=== PATIENT | female | born 1945 | race Caucasian/White ===

== ENCOUNTER 2018-02-03 13:27 | Inpatient (IN) | payer MEDICARE, BC ==
[~2018-02-03] VITALS: Ht 157.5 cm; Wt 66.7 kg
[2018-02-03] MEDS ORDERED: IV NS 0.9% 500 ML IV ONE (13:42)
[2018-02-03] MEDS ORDERED: CT SWABBABLE VALVE TRANS SET 1 EA INFUS.SET MC ONE (13:42)
[2018-02-03] MEDS ORDERED: IOHEXOL-350 100 ML VIAL IV ONE (13:42)
[2018-02-03 13:45] LABS: BASOPHILS % (AUTO) 0.3 % (0.0-2.0); EOSINOPHILS % (AUTO) 0.9 % (0.0-6.0); HEMATOCRIT 40 % (33-45); LYMPHOCYTES % (AUTO) 11.4 % (20.0-44.0); MEAN CORPUSCULAR HGB CONC 35 g/dl (31.0-36.0); MEAN CORPUSCULAR VOLUME 91 fL (82-100); MONOCYTES # (AUTO) 0.2 /CMM (0.1-1.30); MONOCYTES % (AUTO) 2.4 % (2.0-12.0); NEUTROPHILS # (AUTO) 7.8 /CMM (1.8-8.9); PLATELET COUNT (AUTO) 347 /CMM (150-450); RDW COEFFICIENT OF VARIATION 12.3 (11.5-15.0); RED BLOOD CELL COUNT(AUTO) 4.42 MIL/uL (4.0-5.2); WHITE BLOOD COUNT (AUTO) 9.1 K/uL (4.3-11.0)
--- NOTE | 2018-02-03 13:45 | NUR ---
CALLED TELESTROKE HOTLINE, SPOKE WITH SOBIA. EXPETING A CALL BACK FROM DR FONTAINE.
--- NOTE | 2018-02-03 13:49 | NUR ---
DR FONTAINE CALLED
--- NOTE | 2018-02-03 13:49 | NUR ---
DR FONTAINE CALLED ON THE PHONE WITH DR SAUL.
[2018-02-03 13:56] LABS: CALCIUM, SERUM 8.9 mg/dL (8.5-10.1); CARBON DIOXIDE 29 mmol/L (21-32); CHLORIDE 104 mmol/L (98-107); CREATININE 0.7 mg/dL (0.6-1.3); GLUCOSE 108 mg/dL (74-106); POTASSIUM 3.9 mmol/L (3.5-5.1); SODIUM SERUM 140 mmol/L (136-145); UREA NITROGEN, BLOOD 12 mg/dL (7-18)
[2018-02-03] MEDS ORDERED: ONDANSETRON HCL/PF 4 MG/2 ML VIAL ONE (13:59)
[2018-02-03 14:00] LABS: INR 0.88 (0.85-1.15)
[2018-02-03] MEDS ORDERED: IV NS 0.9% 1,000 ML BAG IV ONE (14:00)
[2018-02-03] MEDS ORDERED: MECLIZINE HCL 25 MG TABLET ONE (14:00)
[2018-02-03] MEDS ORDERED: ONDANSETRON HCL/PF 4 MG/2 ML VIAL IVP ONE (14:00)
[2018-02-03] MEDS ORDERED: MECLIZINE HCL 12.5 MG TABLET PO ONE (14:00)
[2018-02-03 14:05] LABS: TROPONIN I < 0.017 ng/mL (0.00-0.056)
[2018-02-03] MEDS ORDERED: METO25TA3 PO (14:25)
[2018-02-03] MEDS ORDERED: LAMO200T PO (14:25)
[2018-02-03] MEDS ORDERED: AMPH10TA4 PO (14:25)
[2018-02-03] MEDS ORDERED: RIVA10TA PO (14:25)
[2018-02-03] MEDS ORDERED: DILT120C51 PO (14:25)
[2018-02-03] MEDS ORDERED: VENL75TA4 PO (14:25)
[2018-02-03 14:46] LABS: CHOLESTEROL 254 mg/dL (<200); HDL CHOLESTEROL 118 mg/dL (40-60); LDL 140 mg/dL (0-99); TRIGLYCERIDES 137 mg/dL (30-150)
[2018-02-03] MEDS ORDERED: ASPIRIN 81 MG TAB.CHEW ONE (14:58)
[2018-02-03 15:00] VITALS: BP 129/77
[2018-02-03] MEDS ORDERED: ASPIRIN 81 MG TAB.CHEW PO ONE (15:00)
[2018-02-03] MEDS ORDERED: LABETALOL HCL IV 100MG VIAL IV PRN (15:00)
[2018-02-03] MEDS ORDERED: hydrALAZINE HCL IV 20 MG VIAL IV PRN (15:00)
--- NOTE | 2018-02-03 15:08 | NUR ---
CALLED TELESTROKE HOTLINE, DR FONTAINE WAS PAGED.
--- NOTE | 2018-02-03 15:14 | NUR ---
CALLED DR GERMAIN OFFICE, WAS PAGED.
[2018-02-03 15:45] VITALS: BP 129/77
--- NOTE | 2018-02-03 15:45 | NUR ---
ASSEMBLER 1ST SHIFTDRIER TAKE OFF TENDER NOTE PATIENT IS ALERT AND ORIENTED x4. NO PAIN AT THIS TIME. NO SOB OR DISTRESS NOTED. ABLE TO COMMUNICATE NEEDS. IV ON LEFT AC INTACT AND PATENT NO REDNESS OR SWELLING NOTED. ALL BELONGINGS WITH PATIENT AT BEDSIDE AND ACCOUNTED FOR. PATIENT STATED SHE FELT LOSS OF BALANCE, FELL, UNSURE IF SHE HIT HER HEAD BUT HAD HEADACHE AND VOMITING IN ER. NIHSS SCALE ASSESSED, NURSING SWALLOW EVALUATION DONE. AWAITING MD ORDERS AT THIS TIME. WILL CONTINUE TO MONITOR THROUGHOUT SHIFT
[2018-02-03 15:52] LABS: APPEARANCE,URINE CLEAR (CLEAR); BILIRUBIN,URINE NEGATIVE (NEGATIVE); BLOOD, URINE NEGATIVE Ery/uL (NEGATIVE); COLOR,URINE YELLOW (YELLOW); KETONES,URINE NEGATIVE (NEGATIVE); LEUKOCYTE ESTERASE ,URINE NEGATIVE (NEGATIVE); NITRITE, URINE NEGATIVE (NEGATIVE); PH,URINE 7.5 (5.0-8.0); PROTEIN,URINE NEGATIVE (NEGATIVE); UGLUCOSE NEGATIVE (NEGATIVE); UROBILINOGEN,URINE 0.2 EU/dL (0.2)
[2018-02-03 16:01] LABS: ALBUMIN 4.1 g/dL (3.4-5.0); BILIRUBIN,DIRECT 0.1 mg/dL (0.0-0.2); BILIRUBIN,TOTAL 0.4 mg/dL (0.2-1.0); TOTAL PROTEIN, SERUM 7.7 g/dL (6.4-8.2)
--- NOTE | 2018-02-03 16:01 | NUR ---
DR. LUTHER TEXTED BACK, ON HOLD FOR NOW,HE WILL LET US KNOW.
--- NOTE | 2018-02-03 16:01 | NUR ---
TEXTED DR. LUTHER FOR MRI APPROVAL.
[2018-02-03 16:02] LABS: THYROID STIMULATING HORMONE 0.964 uIU/mL (0.358-3.74)
--- NOTE | 2018-02-03 16:06 | NUR ---
REPORT GIVEN TO ALEXANDRA MURILLO SENT TO [phone] IN-PATIENT ADMIT.
[2018-02-03] MEDS ORDERED: RIVAROXABAN 10 MG TABLET PO SCH ×2 (17:00)
[2018-02-03] MEDS: BLOOD SUGAR DIAGNOSTIC 1 EACH STRIP IN SCH ×2 (17:16→21:22)
[2018-02-03] MEDS ORDERED: BLOOD SUGAR DIAGNOSTIC 1 EACH STRIP IN SCH (18:00)
--- NOTE | 2018-02-03 18:42 | NUR ---
FUNERAL WORKERS CLOSING NOTE PATIENT RESTING COMFORTABLY AT THIS TIME. NO PAIN NOTED. NO SOB OR DISTRESS NOTED. CALL LIGHT WITHIN REACH AT ALL TIMES. SAFETY MEASURES IMPLEMENTED ABLE TO COMMUNICATE NEEDS. PT EVAL, OT EVAL, AND SPEECH EVAL PENDING TOMORROW. IV INTACT AND PATENT NO FLUIDS RUNNING AT THIS TIME. MRI BRAIN WITHOUT CONTRAST RESULTS PENDING AT THIS TIME. BLOOD SUGAR CHECKED ON SHIFT-90. CARDIAC DIET. WILL HAVE AM LABS. TELE MONITOR- SR/A-FIB AT 86. WILL ENDORSE TO MILITARY SCIENCE TEACHER NURSE FOR MAE
--- NOTE | 2018-02-03 19:10 | NUR ---
RN INITIAL NOTES: RECEIVED REPORT FROM COLTEN BAKER, PT IN BED, AWAKE, A/O X4, ON RA RESPIRATION EVEN KARTHIKEYAN UNLABORED, IV ACCESS PATENT AND FLUSHING WELL, ON HL. CARDIOLOGY MD AT BED SIDE FOR EVAL. PT ON TELE MONITORING AFIB HR 59. SAFETY PRECAUTIONS FOR FALL INITIATED CALL LIGHT IN REACH, WILL CONTINUE MONITORING PT
[2018-02-03 20:00] VITALS: BP 121/74
--- NOTE | 2018-02-03 20:30 | NUR ---
RN NOTES: STROKE EDUCATION PACKET PROVIDED TO THE PT, AND TEACHING INITIATED
--- NOTE | 2018-02-03 21:23 | NUR ---
BLOOD SUGAR 127: ACCU CHECK PERFORMED AND RESULT IS 127, NO INSULIN GIVEN PER SLIDING SCALE, WILL MONITOR PT FOR ANY S/S OF HYPOGLYCEMIA
[2018-02-03] MEDS ORDERED: SIMVASTATIN 40 MG TABLET PO SCH (22:00)
--- NOTE | 2018-02-03 22:57 | NUR ---
ECHO COMPLETE: TECH CAME TO DO ECHO COMPLETE, RESULTS ATTACHED TO PT'S CHART, EF 65% WITH COMMENTS: ATTENTION TO MITRAL VALVE LEAFLET (ANTERIOR)
[2018-02-04] VITALS: BP 101/52
--- NOTE | 2018-02-04 02:38 | NUR ---
RN NOTES: SEEN PT SLEEPING AT THIS TIME, PER LATHER APPRENTICE PT BEEN ON AFIB CONTROLLED HR 58, LOWEST 42
[2018-02-04 04:00] VITALS: BP 103/59
[2018-02-04] MEDS: BLOOD SUGAR DIAGNOSTIC 1 EACH STRIP IN SCH ×2 (06:26→12:16)
--- NOTE | 2018-02-04 06:26 | NUR ---
ACCU CHECK: BLOOD SUGAR CHECKED AND RESULT IS 104, NO INSULIN GIVEN PER SLIDING SCALE, BS IS WNL.
--- NOTE | 2018-02-04 06:42 | NUR ---
RN CLOSING NOTES: PT IN BED, AWAKE, A/O X3, ON RA, DENIES ANY CHEST PAIN OR DISCOMFORT AT THIS TIME. IV ACCESS REMAINS PATENT AND FLUSHING WELL, ON HL. PT NIHSS SCORE REMAINS 0, WITH RIGHT LEG DECREASE STRENGTH WHEN IT COMES TO PUSHING OR PULLING, MD AWARE. REMAINS ON AFIB CONTROLLED HR 61. VS REMAINS STABLE, NEEDS ATTENDED. FOR CVA NEURO CONSULT, PSYCH CONSULT, FOR CAROTID DUPLEX IMAGING TODAY, SAFETY PRECAUTIONS FOR FALL REMAINS ENGAGED, CALL LIGHT IN REACH, WILL ENDORSE TO DAY RN FOR MAE.
[2018-02-04 06:47] LABS: BASOPHILS % (AUTO) 0.4 % (0.0-2.0); EOSINOPHILS % (AUTO) 3.4 % (0.0-6.0); HEMATOCRIT 35 % (33-45); HEMOGLOBIN 11.9 g/dL (11.5-14.8); LYMPHOCYTES # (AUTO) 1.9 /CMM (0.8-4.8); LYMPHOCYTES % (AUTO) 31.1 % (20.0-44.0); MEAN CORPUSCULAR HGB CONC 34 g/dl (31.0-36.0); MEAN CORPUSCULAR VOLUME 91 fL (82-100); MONOCYTES # (AUTO) 0.5 /CMM (0.1-1.30); MONOCYTES % (AUTO) 7.9 % (2.0-12.0); NEUTROPHILS # (AUTO) 3.5 /CMM (1.8-8.9); NEUTROPHILS % (AUTO) 57.2 % (43.0-81.0); PLATELET COUNT (AUTO) 283 /CMM (150-450); RDW COEFFICIENT OF VARIATION 13.1 (11.5-15.0); RED BLOOD CELL COUNT(AUTO) 3.81 MIL/uL (4.0-5.2); WHITE BLOOD COUNT (AUTO) 6.1 K/uL (4.3-11.0)
[2018-02-04 06:52] LABS: INR 1.05 (0.87-1.13)
[2018-02-04 06:54] LABS: CALCIUM, SERUM 8.3 mg/dL (8.5-10.1); CARBON DIOXIDE 30 mmol/L (21-32); CHLORIDE 107 mmol/L (98-107); CREATININE 0.9 mg/dL (0.6-1.3); GLUCOSE 95 mg/dL (74-106); MAGNESIUM 2.1 mg/dL (1.8-2.4); POTASSIUM 4.2 mmol/L (3.5-5.1); SODIUM SERUM 144 mmol/L (136-145); UREA NITROGEN, BLOOD 11 mg/dL (7-18)
[2018-02-04 07:07] LABS: CHOLESTEROL 209 mg/dL (<200); HDL CHOLESTEROL 73 mg/dL (40-60); LDL 116 mg/dL (0-99); TRIGLYCERIDES 122 mg/dL (30-150)
[2018-02-04 08:00] VITALS: BP 105/59
[2018-02-04] MEDS ORDERED: LamoTRIgine 100 MG TABLET PO SCH (09:00)
[2018-02-04] MEDS ORDERED: PANTOPRAZOLE 40 MG VIAL IV SCH (09:00)
[2018-02-04] MEDS ORDERED: ASPIRIN EC 325 MG TABLET.DR PO SCH (09:00)
[2018-02-04] MEDS ORDERED: VENLAFAXINE 25 MG TABLET PO SCH (09:00)
--- NOTE | 2018-02-04 11:30 | NUR ---
dr. maninder gallagher in to see pt.dc order given.
[2018-02-04] MEDS ORDERED: ACETAMINOPHEN 325 MG TABLET PO PRN (12:30)
[2018-02-04] MEDS ORDERED: ASPI-869 PO (12:39)
[2018-02-04] MEDS ORDERED: ATOR40TA PO (12:39)
[2018-02-04 16:00] VITALS: BP 139/83
--- NOTE | 2018-02-04 16:20 | NUR ---
all dc instructions given,hep lock out.friend at bedside for transportation.given rxs as pt. out of town and without some of her meds darin brown np spoke to friend and pt. extensively.taken via w/c to lobby for dc.
[2018-02-04] MEDS ORDERED: RIVAROXABAN 10 MG TABLET PO SCH (17:00)
--- NOTE | 2018-02-04 18:32 | NUR ---
no change in status.
== END 2018-02-04 16:20 | disposition home or self-care (01) | DRG 69 ==
LOC: ER 13:31 → TELE 15:38 → MED 02-04 10:49
PROVIDERS: ADMIT Registered Nurse; ATTEND Registered Nurse
DX: G45.9 Transient cerebral ischemic attack, unspecified (principal); I11.0 Hypertensive heart disease with heart failure; I48.1 Persistent atrial fibrillation; I50.32 Chronic diastolic (congestive) heart failure; I34.0 Nonrheumatic mitral (valve) insufficiency; E78.5 Hyperlipidemia, unspecified; F31.9 Bipolar disorder, unspecified; F41.9 Anxiety disorder, unspecified; Z79.01 Long term (current) use of anticoagulants; Z86.73 Personal history of transient ischemic attack (TIA), and cerebral infarction without residual deficits; Z87.891 Personal history of nicotine dependence; Z90.710 Acquired absence of both cervix and uterus; M81.0 Age-related osteoporosis without current pathological fracture; R29.6 Repeated falls
CPT/HCPCS: 36415; 70450-TC; 70496-TC; 70498-TC; 70551-TC; 71045-TC; 80048-TC; 80061-TC; 80076-TC; 80305; 81000-TC; 82962-TC; 83735-TC; 83880; 84100-TC; 84443-TC; 84484-TC; 85025-TC; 85652-TC; 85730-TC; 86850-TC; 87081-TC; 93307-TC; 93880-TC; A4606; C9113; J2405; J3490; J7030; J7040; J8597; Q9967; Z7610

== ENCOUNTER 2018-02-05 10:21 | Inpatient (IN) | payer MEDICARE, OTHER ==
[~2018-02-05] VITALS: Ht 157.5 cm; Wt 68.0 kg
[~2018-02-05 10:21] MED LIST: AMPH10TA4 PO; ASPI-869 PO; ATOR40TA PO; DILT120C51 PO; LAMO200T PO; METO25TA3 PO; RIVA10TA PO; VENL75TA4 PO
--- NOTE | 2018-02-05 10:23 | NUR ---
BB BF FROM HOME C/O HEADACHE, NAUSEA, DIZZINESS, GENERALIZED WEAKNESS THAT STARTED 1 HR AGO. PT WAS JUST DISCHARGED FROM THE HOSP YESTERDAY FOR DX: TIA. PT IS AAOX4. SKIN WNL. DEALER CARD ROOM STRENGTH STRONG AND EQUAL BILATERAL. PT ABLE TO MAINTAIN ALL EXTREMITIES UP FOR 10 SECONDS WITHOUT ANY DRIFT. PT STATES "MY L CHEEK AND L ARM FEEL A BIT MORE NUMB TO TOUCH." PT PLACED IN GOWN AND ON MONITOR AND POX. PT SAFETY AND COMFROT MEASURES IN PLACE. AWAITING MD FOR EVAL.
--- NOTE | 2018-02-05 10:26 | NUR ---
BEDSIDE FOR EVAL
[2018-02-05] MEDS ORDERED: IOHEXOL-350 100 ML VIAL IV ONE (10:42)
--- NOTE | 2018-02-05 10:44 | NUR ---
stroke monitor bedside. pt taken to ct
[2018-02-05 10:48] LABS: BASOPHILS # (AUTO) 0.2 /CMM (0.0-0.2); BASOPHILS % (AUTO) 2.9 % (0.0-2.0); EOSINOPHILS % (AUTO) 2.2 % (0.0-6.0); HEMATOCRIT 40 % (33-45); HEMOGLOBIN 13.8 g/dL (11.5-14.8); LYMPHOCYTES # (AUTO) 1.3 /CMM (0.8-4.8); LYMPHOCYTES % (AUTO) 17.5 % (20.0-44.0); MEAN CORPUSCULAR HGB CONC 34 g/dl (31.0-36.0); MEAN CORPUSCULAR VOLUME 91 fL (82-100); MONOCYTES # (AUTO) 0.5 /CMM (0.1-1.30); MONOCYTES % (AUTO) 7.3 % (2.0-12.0); NEUTROPHILS % (AUTO) 70.1 % (43.0-81.0); PLATELET COUNT (AUTO) 308 /CMM (150-450); RDW COEFFICIENT OF VARIATION 11.9 (11.5-15.0); RED BLOOD CELL COUNT(AUTO) 4.44 MIL/uL (4.0-5.2); WHITE BLOOD COUNT (AUTO) 7.2 K/uL (4.3-11.0)
--- NOTE | 2018-02-05 10:48 | NUR ---
CALLED TELESTROKE AND SPOKE TO ЕКАТЕРИНА. NEUROLOGIST RUGBY LEAGUE FOOTBALLER WILL BE DR FONTAINE.
--- NOTE | 2018-02-05 10:55 | NUR ---
DR EPSTEIN IS TALKING ON THE PHONE WITH DR FONTAINE (NEUROLOGIST).
[2018-02-05 11:02] LABS: CALCIUM, SERUM 8.9 mg/dL (8.5-10.1); CARBON DIOXIDE 27 mmol/L (21-32); CHLORIDE 106 mmol/L (98-107); CREATININE 0.8 mg/dL (0.6-1.3); GLUCOSE 122 mg/dL (74-106); SODIUM SERUM 140 mmol/L (136-145); UREA NITROGEN, BLOOD 17 mg/dL (7-18)
--- NOTE | 2018-02-05 11:02 | NUR ---
PT BACK FROM CT
[2018-02-05 11:07] LABS: CHOLESTEROL 236 mg/dL (<200); HDL CHOLESTEROL 90 mg/dL (40-60); LDL 125 mg/dL (0-99); TRIGLYCERIDES 141 mg/dL (30-150)
[2018-02-05 11:08] LABS: ALANINE AMINOTRANSFERASE 25 U/L (12-78); ALBUMIN 3.6 g/dL (3.4-5.0); ALKALINE PHOSPHATASE 149 U/L (46-116); ASPARTATE AMINOTRANSFERASE 14 U/L (15-37); BILIRUBIN,DIRECT 0.1 mg/dL (0.0-0.2); BILIRUBIN,TOTAL 0.3 mg/dL (0.2-1.0)
[2018-02-05 11:09] LABS: TROPONIN I < 0.017 ng/mL (0.00-0.056)
[2018-02-05 11:10] LABS: INR 0.87 (0.85-1.15)
--- NOTE | 2018-02-05 11:18 | NUR ---
PT RESTING IN BED WITH FAMILY/FRIEND BEDIDE. VSS. NO S/S OF DISTRESS NOTED IN PT. WILL CONTINUE TO MONITOR
--- NOTE | 2018-02-05 11:54 | NUR ---
TELE [id number] MARIA ANTONIA
--- NOTE | 2018-02-05 12:00 | NUR ---
REPORT GIVEN TO MARY EM FOR MAE.
[2018-02-05] MEDS ORDERED: IV NS 0.9% 1,000 ML IV PRN (12:14)
[2018-02-05 12:30] VITALS: BP 138/83
[2018-02-05] MEDS ORDERED: ACETAMINOPHEN 325 MG TABLET PO PRN ×2 (12:30→12:45)
[2018-02-05] MEDS ORDERED: PANTOPRAZOLE 40 MG VIAL IV SCH (12:30)
[2018-02-05] MEDS ORDERED: ZOLPIDEM TARTRATE 5 MG TABLET PO PRN ×2 (12:30→12:45)
[2018-02-05] MEDS ORDERED: Z GUARD REMEDY 2 OZ OINT TP PRN ×2 (12:30→12:45)
[2018-02-05] MEDS ORDERED: MAG HYDROX/AL HYDROX/SIMETH 30 ML UDC PO PRN ×2 (12:30→12:45)
[2018-02-05] MEDS ORDERED: ASPIRIN EC 325 MG TABLET.DR PO SCH ×2 (12:30→12:45)
[2018-02-05] MEDS ORDERED: HYDROCODONE/APAP 5/325MG 1 EACH TABLET PO PRN ×2 (12:30→12:45)
[2018-02-05] MEDS ORDERED: MAGNESIUM HYDROXIDE 30 ML UDC PO PRN ×2 (12:30→12:45)
[2018-02-05] MEDS ORDERED: ONDANSETRON HCL/PF 4 MG/2 ML VIAL IVP PRN ×2 (12:30→12:45)
--- NOTE | 2018-02-05 12:30 | NUR ---
RN NOTES PT WAS BROUGHT UP TO FLOOR IN STABLE CONDITION, ACCOMPANIED BY . PT IS ALERT AND ORIENTED X4, ABLE TO AMBULATE TO BED. SAFETY MEASURES ARE IN PLACE, CALL LIGHT IS IN REACH. WILL CONTINUE TO MONITOR.
[2018-02-05] MEDS: VENLAFAXINE 25 MG TABLET PO SCH (14:07)
[2018-02-05] MEDS: LamoTRIgine 100 MG TABLET PO SCH (14:08)
[2018-02-05] MEDS: IV NS 0.9% 1,000 ML IV PRN (14:08)
[2018-02-05 16:00] VITALS: BP 124/66
[2018-02-05] MEDS: RIVAROXABAN 10 MG TABLET PO SCH (16:47)
[2018-02-05] MEDS ORDERED: RIVAROXABAN 10 MG TABLET PO SCH (17:00)
--- NOTE | 2018-02-05 18:32 | NUR ---
RN NOTES PT IS LAYING DOWN IN BED, ALERT AND ORIENTED. PT ON RA, RESPIRATIONS ARE EVEN AND UNLABORED. IV ON R HAND INTACT AND SL AND RAC INTACT AND RUNNING NS @ 75ML/HR. TELE MONITOR SHOWS CONTROLLED A-FIB. ALL MEDS WERE GIVEN ORDERED AND PT NEEDS ANTICIPATED FOR AND MET. NO SIGNS OF DISTRESS NOTED. SAFETY MEASURES ARE IN PLACE, CALL LIGHT IS IN REACH. WILL ENDORSE TO WAITANGI TRIBUNAL MEMBER RN FOR CONTINUITY OF CARE.
--- NOTE | 2018-02-05 19:35 | NUR ---
SNUBBER OPENING NOTES RECEIVED PATIENT IN BED, AWAKE ALERT AND ORIENTED X 4, ABLE TO MAKE NEEDS KNOWN, ASSISTED TO THE BATHROOM , URINE SPECIMEN COLLECTED, RESPIRATIONS EVEN AND UNLABORED, DENIES ANY PAIN OR DISCOMFORT AT THIS TIME, PATIENT IS NPO EXCEPT FOR MEDS AT THIS TIME, PATIENT IS AWARE. IV SITE TO RIGHT HAND 18 GAUGE AND RIGHT AC 18 GAUGE, INTACT AND PATENT, NO REDNESS , NO INFILTRATION PRESENT, IVF FLUIDS RUNNING ORDERED, DENIES NAUSEA AT THIS TIME, ORIENTED TO STAFF , SAFETY MEASURES IN PLACE WILL CONTINUE TO MONITOR, MEAL MILLER IN PLACE.
[2018-02-05 20:00] VITALS: BP 134/70
[2018-02-06] VITALS: BP 129/72
[2018-02-06] MEDS: IV NS 0.9% 1,000 ML IV PRN (01:56)
[2018-02-06 02:36] LABS: APPEARANCE,URINE CLEAR (CLEAR); BILIRUBIN,URINE NEGATIVE (NEGATIVE); BLOOD, URINE NEGATIVE Ery/uL (NEGATIVE); COLOR,URINE YELLOW (YELLOW); KETONES,URINE NEGATIVE (NEGATIVE); LEUKOCYTE ESTERASE ,URINE NEGATIVE (NEGATIVE); NITRITE, URINE NEGATIVE (NEGATIVE); PROTEIN,URINE NEGATIVE (NEGATIVE); UGLUCOSE NEGATIVE (NEGATIVE); UROBILINOGEN,URINE 0.2 EU/dL (0.2)
[2018-02-06 04:00] VITALS: BP 135/77
--- NOTE | 2018-02-06 06:34 | NUR ---
TAKE OUT WAITER CLOSING NOTES PATIENT IN BED, AWAKE ALERT AND ORIENTED X 4, ABLE TO MAKE NEEDS KNOWN, ASSISTED TO THE BATHROOM, RESPIRATIONS EVEN AND UNLABORED, DENIES ANY PAIN OR DISCOMFORT AT THIS TIME, PATIENT IS NPO EXCEPT FOR MEDS AT THIS TIME, PATIENT IS AWARE. IV SITE TO RIGHT HAND 18 GAUGE AND RIGHT AC 18 GAUGE, INTACT AND PATENT, NO REDNESS , NO INFILTRATION PRESENT, IVF FLUIDS RUNNING ORDERED, DENIES NAUSEA AT THIS TIME, , SAFETY MEASURES IN PLACE , PLANT ASSOCIATE IN PLACE WITH CONTROLLED A.FIB 69. NO DISTRESS, NO COMPLAINTS OF CHEST PAIN. WILL CONTINUE TO MONITOR AND ENDORSE TO NEXT SHIFT.
[2018-02-06 06:59] LABS: CALCIUM, SERUM 8.7 mg/dL (8.5-10.1); CARBON DIOXIDE 30 mmol/L (21-32); CHLORIDE 108 mmol/L (98-107); CREATININE 0.7 mg/dL (0.6-1.3); GLUCOSE 83 mg/dL (74-106); POTASSIUM 3.6 mmol/L (3.5-5.1); SODIUM SERUM 144 mmol/L (136-145); UREA NITROGEN, BLOOD 8 mg/dL (7-18)
--- NOTE | 2018-02-06 07:10 | NUR ---
RN NOTES PT IS SITING UP IN BED, AWAKE AND ALERT. PT ON 3L O2, RESPIRATIONS ARE EVEN AND UNLABORED. IV ON RAC INTACT AND SL AND R HAND INTACT AND RUNNING NS @ 75ML/HR. NO SIGNS OF DISTRESS NOTED. SAFETY MEASURES ARE IN PLACE, CALL LIGHT IS IN REACH. WILL CONTINUE TO MONITOR.
[2018-02-06 07:39] LABS: BASOPHILS % (AUTO) 0.4 % (0.0-2.0); EOSINOPHILS % (AUTO) 3.4 % (0.0-6.0); HEMATOCRIT 36 % (33-45); HEMOGLOBIN 12.4 g/dL (11.5-14.8); LYMPHOCYTES # (AUTO) 1.6 /CMM (0.8-4.8); MEAN CORPUSCULAR HGB CONC 35 g/dl (31.0-36.0); MEAN CORPUSCULAR VOLUME 91 fL (82-100); MONOCYTES # (AUTO) 0.3 /CMM (0.1-1.30); MONOCYTES % (AUTO) 6.3 % (2.0-12.0); NEUTROPHILS # (AUTO) 3.3 /CMM (1.8-8.9); NEUTROPHILS % (AUTO) 60.9 % (43.0-81.0); PLATELET COUNT (AUTO) 257 /CMM (150-450); RDW COEFFICIENT OF VARIATION 12.1 (11.5-15.0); RED BLOOD CELL COUNT(AUTO) 3.89 MIL/uL (4.0-5.2); WHITE BLOOD COUNT (AUTO) 5.4 K/uL (4.3-11.0)
[2018-02-06 08:00] VITALS: BP 145/71
[2018-02-06] MEDS: VENLAFAXINE 25 MG TABLET PO SCH (08:23)
[2018-02-06] MEDS: LamoTRIgine 100 MG TABLET PO SCH (08:24)
[2018-02-06] MEDS: METOPROLOL SUCCINATE 50 MG TAB.SR.24H PO SCH (08:24)
[2018-02-06] MEDS: PANTOPRAZOLE 40 MG VIAL IV SCH (08:24)
[2018-02-06] MEDS: ATORVASTATIN 40 MG TABLET PO SCH (08:24)
[2018-02-06] MEDS: DILTIAZEM HCL CD 180 MG PO SCH (08:24)
[2018-02-06] MEDS: DOCUSATE SODIUM 100 MG CAPSULE PO SCH (08:25)
[2018-02-06] MEDS ORDERED: ATORVASTATIN 40 MG TABLET PO SCH (09:00)
[2018-02-06] MEDS ORDERED: DOCUSATE SODIUM 100 MG CAPSULE PO SCH (09:00)
[2018-02-06] MEDS ORDERED: DILTIAZEM HCL CD 120 MG PO SCH ×2 (09:00)
[2018-02-06] MEDS ORDERED: METOPROLOL SUCCINATE 25 MG TAB.SR.24H PO SCH (09:00)
[2018-02-06] MEDS ORDERED: BLOOD SUGAR DIAGNOSTIC 1 EACH STRIP IN SCH ×2 (12:00)
[2018-02-06 16:00] VITALS: BP_SYST 107; BP_SYST 112; BP_DIAS 64; BP_DIAS 65
[2018-02-06] MEDS: RIVAROXABAN 10 MG TABLET PO SCH (16:25)
[2018-02-06 16:40] VITALS: BP 112/64
--- NOTE | 2018-02-06 18:35 | NUR ---
RN NOTES PT SITTING UP IN BED, AWAKE AND ALERT, RESTING COMFORTABLY. PT ON RA, RESPIRATIONS ARE EVEN AND UNLABORED. IV ON RAC AND R HAND INTACT AND SL. ALL MEDS WERE GIVEN ORDERED AND PT NEEDS MET. NO SIGNS OF DISTRESS NOTED. SAFETY MEASURES ARE IN PLACE, CALL LIGHT IS IN REACH. WILL ENDORSE TO DENTAL MANAGER RN FOR CONTINUITY OF CARE.
--- NOTE | 2018-02-06 19:40 | NUR ---
MS RN NOTE: PATIENT RESTING IN BED, NO ACUTE DISTRESS NOTED. BREATHING EVEN AND UNLABORED, NO SOB NOTED. IV TO RAC AND RIGHT HAND IN PLACE. BED LOCKED AND IN LOWEST POSITION, CALL LIGHT IN REACH. WILL CONTINUE TO MONITOR.
[2018-02-06 19:58] VITALS: BP 119/69
--- NOTE | 2018-02-06 22:45 | NUR ---
MS RN NOTE: REPORT GIVEN TO OLIVIA LAWRENCE, FOR CONTINUATION OF CARE. PATIENT RESTING IN BED, NO ACUTE DISTRESS NOTED.
--- NOTE | 2018-02-07 00:40 | NUR ---
MSRN FULLY AWAKE, AMBULATORY, NO SOB, PAINFREE. ALL NEEDS MADE, GETTING READY FOR BEDTIME. KEPT COMFORTABLE. SAFETY PRECAUTIONS EMPHASIZED, WELL UNDERSTOOD.
[2018-02-07 06:21] LABS: BASOPHILS % (AUTO) 0.4 % (0.0-2.0); EOSINOPHILS % (AUTO) 2.4 % (0.0-6.0); HEMATOCRIT 38 % (33-45); LYMPHOCYTES # (AUTO) 1.6 /CMM (0.8-4.8); LYMPHOCYTES % (AUTO) 21.3 % (20.0-44.0); MEAN CORPUSCULAR HGB CONC 34 g/dl (31.0-36.0); MEAN CORPUSCULAR VOLUME 92 fL (82-100); MONOCYTES # (AUTO) 0.5 /CMM (0.1-1.30); MONOCYTES % (AUTO) 7.2 % (2.0-12.0); NEUTROPHILS # (AUTO) 5.1 /CMM (1.8-8.9); NEUTROPHILS % (AUTO) 68.7 % (43.0-81.0); PLATELET COUNT (AUTO) 292 /CMM (150-450); RDW COEFFICIENT OF VARIATION 13.1 (11.5-15.0); RED BLOOD CELL COUNT(AUTO) 4.14 MIL/uL (4.0-5.2); WHITE BLOOD COUNT (AUTO) 7.4 K/uL (4.3-11.0)
[2018-02-07 06:41] LABS: CALCIUM, SERUM 8.8 mg/dL (8.5-10.1); CARBON DIOXIDE 32 mmol/L (21-32); CHLORIDE 105 mmol/L (98-107); CREATININE 0.9 mg/dL (0.6-1.3); GLUCOSE 109 mg/dL (74-106); POTASSIUM 3.7 mmol/L (3.5-5.1); SODIUM SERUM 142 mmol/L (136-145); UREA NITROGEN, BLOOD 14 mg/dL (7-18)
--- NOTE | 2018-02-07 06:49 | NUR ---
MSRN SLEPT GOOD THROUGHOUT THE NIGHT. NO COMPLAINTS MADE. REMAINS STABLE. POSSIBLE DC TODAY.
--- NOTE | 2018-02-07 07:39 | NUR ---
MS/RN OPENING NOTE PATIENT IN BED IN STABLE CONDITION. A/O X 3. NO SIGNS OF ACUTE DISTRESS. NO COMPLAIN OF PAIN OR DISCOMFORT. ALL NEEDS ATTENDED TO. CALL LIGHT WITHIN REACH. WILL CONTINUE TO MONITOR TO ENSURE SAFETY.
[2018-02-07 08:00] VITALS: BP 122/63
[2018-02-07] MEDS: VENLAFAXINE 25 MG TABLET PO SCH (08:34)
[2018-02-07 08:35] VITALS: BP 122/63
[2018-02-07] MEDS: PANTOPRAZOLE 40 MG VIAL IV SCH (08:35)
[2018-02-07] MEDS: DILTIAZEM HCL CD 180 MG PO SCH (08:35)
[2018-02-07] MEDS: METOPROLOL SUCCINATE 50 MG TAB.SR.24H PO SCH (08:35)
[2018-02-07] MEDS: ATORVASTATIN 40 MG TABLET PO SCH (08:36)
[2018-02-07] MEDS: LamoTRIgine 100 MG TABLET PO SCH (08:36)
[2018-02-07] MEDS: DOCUSATE SODIUM 100 MG CAPSULE PO SCH (08:36)
--- NOTE | 2018-02-07 09:57 | NUR ---
MS/RN SEEN BY DR CRUMP PATIENT SEEN BY DR CRUMP WITH ORDER FOR OK TO SHOWER.
--- NOTE | 2018-02-07 11:54 | NUR ---
MS/AFTER SCHOOL PROGRAM ASSISTANT PATIENT DISCHARGE HOME IN STABLE CONDITION. A/O X 4. NO SIGNS OF ACUTE DISTRESS. NO COMPLAIN OF PAIN OR DISCOMFORT. DISCHARGE INSTRUCTIONS AND TEACHINGS PROVIDED, PATIENT VERBALIZED THE UNDERSTANDING OF TEACHINGS. MADE AWARE TO FOLLOW UP WITH PRIMARY PHYSICIAN WITHIN A WEEK. ALL NEEDS ATTENDED TO. NAME BAND AND IV LINE REMOVED. LEFT IN STABLE CONDITION VIA PRIVATE CAR ACCOMPANIED BY FRIEND.
== END 2018-02-07 11:50 | disposition home or self-care (01) | DRG 149 ==
LOC: ER 10:24 → TELE 12:48 → MED 02-06 11:16
PROVIDERS: ADMIT Hospitalist; ATTEND Hospitalist
DX: H81.10 Benign paroxysmal vertigo, unspecified ear (principal); I48.91 Unspecified atrial fibrillation; E78.5 Hyperlipidemia, unspecified; F41.9 Anxiety disorder, unspecified; F31.9 Bipolar disorder, unspecified; I10 Essential (primary) hypertension; M81.0 Age-related osteoporosis without current pathological fracture; Z86.73 Personal history of transient ischemic attack (TIA), and cerebral infarction without residual deficits; Z87.891 Personal history of nicotine dependence; Z90.710 Acquired absence of both cervix and uterus; Z79.01 Long term (current) use of anticoagulants; R73.9 Hyperglycemia, unspecified; Z98.890 Other specified postprocedural states; I51.7 Cardiomegaly; R79.89 Other specified abnormal findings of blood chemistry; I77.1 Stricture of artery
CPT/HCPCS: 36415; 70450-TC; 70496-TC; 70498-TC; 71045-TC; 80048-TC; 80061-TC; 80076-TC; 80305; 81000-TC; 82962-TC; 83880; 84443-TC; 84484-TC; 85025-TC; 85652-TC; 85730-TC; 87081-TC; 87086-TC; 92611-TC; A4606; C9113; J2405; J7030; Q9967; Z7610